=== PATIENT | male | born 1955 | race Caucasian/White ===

== ENCOUNTER 2019-09-11 14:24 | Emergency (ER) | payer OTHER ==
[2019-09-11] MEDS ORDERED: SODIUM CHLORIDE 0.9% (FLUSH) 10 ML SYG IV PRN (14:36)
[2019-09-11] MEDS ORDERED: SODIUM CHLORIDE 0.9% 1000ML 1,000 ML IVS ONE (14:37)
[2019-09-11] MEDS ORDERED: ONDANSETRON INJ 4 MG/2 ML VIAL ONE (14:41)
[2019-09-11] MEDS ORDERED: fentaNYL CITRATE INJ 50 MCG/ML AMP ONE (14:42)
[2019-09-11] MEDS ORDERED: KETOROLAC TROMETHAMINE INJ 30 MG/ML VIAL ONE (14:42)
[2019-09-11] MEDS ORDERED: KETOROLAC TROMETHAMINE INJ 30 MG/ML VIAL IV ONE (14:45)
[2019-09-11] MEDS ORDERED: ONDANSETRON INJ 4 MG/2 ML VIAL IV ONE (14:45)
[2019-09-11] MEDS ORDERED: fentaNYL CITRATE INJ 50 MCG/ML AMP IV ONE (14:45)
--- NOTE | 2019-09-11 14:48 | ED.PDOC ---
History of Present Illness - General Time Seen by Provider: 09/11/19 14:36 Source: patient - History of Present Illness Initial Comments: 64 yo male who presents with cc of abdominal pain. Sudden onset approx 30 mins ago at work, located to RLQ with radiation to right groin, testicle, and penis, constant, dull, 10/10, no change with position changes, nothing tried for relief. Reports only small amount of urination since onset but no dysuria or hematuria. Reports nausea but no vomiting. Denies fevers, chills, diarrhea. No hx of similar sx's or kidney stones. Allergies/Adverse Reactions: Allergies NO KNOWN ALLERGY Allergy (Unverified 09/11/19 15:06) Home Medications: Ambulatory Orders ALPRAZolam [Xanax] 0.5 mg PO BID PRN #14 tab 11/04/14 Cetirizine HCl [Zyrtec] 10 mg PO BID 11/04/14 predniSONE 10 mg BID 11/04/14 Acetaminophen W/ Codeine [Tylenol W/ CODEINE #3] 1 ea PO Q6H PRN 5 Days #15 09/11/19 Ciprofloxacin [Cipro] 500 mg PO BID 7 Days #14 tab 09/11/19 Ondansetron Odt [Zofran ODT] 8 mg PO Q8H PRN 5 Days #10 tab 09/11/19 Tamsulosin HCl [Flomax] 0.4 mg PO DAILY 7 Days #7 cap 09/11/19 Review of Systems - Review of Systems Review of Systems: 09/11/19 14:48 as per HPI All other Systems: Reviewed and Negative Past Medical History (General) - Patient Medical History Hx Asthma: No - Vaccination History Hx Influenza Vaccination: No - Social History Hx Tobacco Use: No Hx Alcohol Use: No - Female History Patient : No Family Medical History - Family History Mother Family History: Unknown Physical Exam - Physical Exam General Appearance: Alert, Anxious - due to pain Eye Exam: bilateral normal Ears, Nose, Throat: hearing grossly normal, normal ENT inspection Neck: non-tender, full range of motion, supple, normal inspection Respiratory: lungs clear, normal breath sounds, no respiratory distress, no accessory muscle use Cardiovascular/Chest: normal peripheral pulses, regular rate, rhythm, no edema, no murmur Peripheral Pulses: radial,right: 2+, radial,left: 2+ Gastrointestinal/Abdominal: non tender, soft, no organomegaly, other - testicles and penis appear normal without swelling/redness, no tenderness, no hernias appreciated Back Exam: normal inspection, no CVA tenderness, no vertebral tenderness Extremity: normal range of motion, non-tender, normal inspection, no pedal indio ma, no calf tenderness Neurologic: ground hand II-XII nml as tested, no motor/sensory deficits, alert, normal mood/affect, oriented x 3 Skin Exam: normal color, warm/dry Progress - Progress Progress: 09/11/19 14:50 Acute abdominal pain -suspect kidney stone most likely. Consider also acute appendicitis vs colitis vs muscle strain vs hernia vs other -stat labs, UA -place PIV, 1 L NS bolus, Fentanyl 50 mcg IV, Toradol 30 mg IV, Zofran 8 mg IV 09/11/19 17:11 -Labs reveal large blood on UA. WBC is elevated to 11,000. BUN/Cr wnl. -CT A/P obtained and reveals obstructing distal 4 mm stone at right distal UVJ with mild associated hydroureteronephrosis. Also noted is possible mild div erticulitis in the sigmoid colon. Incidentally noted Right 1.5 cm exophytic cyst as well. -discussed dx of ureteral stone and acute diverticulitis as well as treatment plan and expected course. Suspect great chance of passage given location and size. Will trx with Rocephin 1 g IV, Cipro 500 PO, Flomax here. Send home with Cipro 500 BID x7 days, Zofran PRN, Tylenol #3 PRN, Zofran PRN as well as work note. Return warnings discussed. F/u with PCP 1-2 weeks for repeat eval and to discuss right renal cyst. Jeff Flores MD Billing #[id number] - Results/Orders Results/Orders: 09/11/19 14:36 IV Care:Saline Lock per Protoc QSHIFT Sodium Chloride 0.9% (Flush) [Saline Flush Syringe] 10 ml IV PRN PRN Laboratory Results - last 24 hr 09/11/19 09/11/19 09/11/19 14:40 14:40 14:40 WBC 11.0 H RBC 5.32 Hgb 15.9 Hct 47.3 MCV 88.9 MCH 29.8 MCHC 33.6 RDW 13.7 Plt Count 243 MPV 9.4 Absolute Neuts (auto) 7.00 H Absolute Lymphs (auto) 2.80 Absolute Monos (auto) 0.80 Absolute Eos (auto) 0.30 Absolute Basos (auto) 0.10 Neutrophils % 63.5 Lymphocytes % 25.7 Monocytes % 7.2 Eosinophils % 2.6 Basophils % 1.0 Sodium 141 Potassium 3.5 L Chloride 104 Carbon Dioxide 25 Anion Gap 15.5 BUN 18 Creatinine 0.88 BUN/Creatinine Ratio 20.5 H Random Glucose 98 Serum Osmolality 283.1 Calcium 9.5 Total Bilirubin 0.7 Direct Bilirubin 0.2 Indirect Bilirubin 0.5 AST 23 ALT 14 Alkaline Phosphatase 77 Serum Total Protein 7.5 Albumin 4.3 Lipase 32 Urine Color Urine Appearance Urine pH Ur Specific Becker Urine Protein Urine Glucose (UA) Urine Ketones Urine Blood Urine Nitrite Urine Bilirubin Urine Urobilinogen Ur Leukocyte Esterase Urine RBC Urine WBC Ur Epithelial Cells Urine Bacteria Urine Mucus 09/11/19 15:00 WBC RBC Hgb Hct MCV MCH MCHC RDW Plt Count MPV Absolute Neuts (auto) Absolute Lymphs (auto) Absolute Monos (auto) Absolute Eos (auto) Absolute Basos (auto) Neutrophils % Lymphocytes % Monocytes % Eosinophils % Basophils % Sodium Potassium Chloride Carbon Dioxide Anion Gap BUN Creatinine BUN/Creatinine Ratio Random Glucose Serum Osmolality Calcium Total Bilirubin Direct Bilirubin Indirect Bilirubin AST ALT Alkaline Phosphatase Serum Total Protein Albumin Lipase Urine Color Yellow Urine Appearance Sl cloudy Urine pH 6.0 Ur Specific Becker 1.025 Urine Protein Trace Urine Glucose (UA) Negative Urine Ketones Negative Urine Blood Large H Urine Nitrite Negative Urine Bilirubin Negative Urine Urobilinogen 1.0 Ur Leukocyte Esterase Negative Urine RBC >50 H Urine WBC 1-3 Ur Epithelial Cells 0-1 Urine Bacteria Rare Urine Mucus Small Departure - Departure Clinical Impression: Ureteral stone with hydronephrosis, Diverticulitis, Renal cyst Time of Disposition: 17:15 Disposition: Discharge to Home or Self Care Condition: Fair Instructions: Kidney Stones (DC) Diet: resume usual diet Referrals: Brian Hobbs MD [Family Provider] - 1-2 Weeks Prescriptions: Acetaminophen W/ Codeine [Tylenol W/ CODEINE #3] 1 ea PO Q6H PRN 5 Days #15 PRN Reason: Pain Ciprofloxacin [Cipro] 500 mg PO BID 7 Days #14 tab Ondansetron Odt [Zofran ODT] 8 mg PO Q8H PRN 5 Days #10 tab PRN Reason: Nausea Tamsulosin HCl [Flomax] 0.4 mg PO DAILY 7 Days #7 cap Home Medications: Ambulatory Orders ALPRAZolam [Xanax] 0.5 mg PO BID PRN #14 tab 11/04/14 Cetirizine HCl [Zyrtec] 10 mg PO BID 11/04/14 predniSONE 10 mg BID 11/04/14 Acetaminophen W/ Codeine [Tylenol W/ CODEINE #3] 1 ea PO Q6H PRN 5 Days #15 09/11/19 Ciprofloxacin [Cipro] 500 mg PO BID 7 Days #14 tab 09/11/19 Ondansetron Odt [Zofran ODT] 8 mg PO Q8H PRN 5 Days #10 tab 09/11/19 Tamsulosin HCl [Flomax] 0.4 mg PO DAILY 7 Days #7 cap 09/11/19 Additional Instructions: Remain well hydrated and advance diet and activity level as tolerated. Take ibuprofen 600 mg every 6 hours as needed and Tylenol as needed for pain. You may take Tylenol #3 as directed for breakthrough pain. Do not drive or operate heavy machinery when taking. Return if symptoms return or worsen. Follow up with your primary care doctor in 1-2 weeks for repeat evaluation and to further discuss the right kidney cyst which was noted on your cat scan this visit.
--- NOTE | 2019-09-11 16:24 | CT ---
EXAM DESCRIPTION: Abdoment/Pelvis w/o Contrast CLINICAL HISTORY: 64 years Male, RLQ pain, hematuria COMPARISON: None available. TECHNIQUE: Contiguous 3 mm axial images were obtained from the lung bases to the level of the proximal femora without the administration of intravenous or oral contrast. Sagittal and coronal reconstructions were reviewed. FINDINGS: Limited evaluation of the solid organs due to the lack of intravenous contrast. THORAX: Mild atelectasis of the right lung base. LIVER: The liver demonstrates normal size and density with no intrahepatic biliary ductal dilatation. GALLBLADDER: Grossly unremarkable. PANCREAS: Appears normal with no cystic or solid lesions. SPLEEN: Normal ADRENAL GLANDS: Normal with no nodules or masses. KIDNEYS: 1.5 cm exophytic isodense lesion is noted in the upper pole of the right kidney. Mild hydroureteronephrosis of the right kidney secondary to obstruction from a 4 mm calculus at the ureterovesical junction. The visualized ureters appear grossly unremarkable. STOMACH: Small hiatal hernia. The stomach is moderately distended with no gross abnormality. SMALL BOWEL: The small bowel loops demonstrate variable degrees of distention with no abnormal dilatation or other signs to suggest bowel obstruction. LARGE BOWEL: Constipation. Numerous diverticula are noted throughout the visualized colon. Mild inflammatory stranding surrounding the proximal sigmoid colon could represent early changes of acute diverticulitis. The appendix is well-visualized and appears normal No evidence of free intraperitoneal air or fluid. RETROPERITONEUM: The abdominal aorta is nonaneurysmal with mild atherosclerosis. The inferior vena cava is normal in size and caliber. Few subcentimeter retroperitoneal lymph nodes are identified. URINARY BLADDER: Not well distended limiting evaluation. The prostate gland demonstrates few calcifications. ADDITIONAL FINDINGS: Small fat-containing bilateral inguinal hernias. BONES: Mild degenerative changes are identified in the visualized bones.No evidence of osteophytic or osteoblastic lesions. IMPRESSION: 1. Mild hydroureteronephrosis of the right kidney secondary to obstruction from a 4 mm calculus at the ureterovesical junction. 2. 1.5 cm exophytic isodense lesion is noted in the upper pole of the right kidney with a density of 17 Hounsfield units. This could represent a complicated cyst. 3. Possible mild acute diverticulitis of the proximal sigmoid colon. No perforation or abscess formation. This exam was performed according to our departmental dose-optimization program, which includes automated exposure control, adjustment of the mA and/or kV according to patient size and/or use of iterative reconstruction technique. Electronically signed by: Jocelyn Aguilar MD 09/11/2019 4:22 PM [employer]
[2019-09-11] MEDS ORDERED: TAMSULOSIN 0.4 MG CAP PO ONE (16:33)
[2019-09-11] MEDS ORDERED: CIPROFLOXACIN 500 MG TAB PO ONE (16:33)
[2019-09-11] MEDS ORDERED: cefTRIAXone SODIUM 1 GM in SODIUM CHL 0.9% 50ML MIN-BAG+ 50 ML IVPB ONE (16:33)
[2019-09-11] MEDS ORDERED: cefTRIAXone SODIUM 1 GM VIAL ONE (16:42)
[2019-09-11] MEDS ORDERED: SODIUM CHL 0.9% 50ML MIN-BAG+ 50 ML IVPB ONE (16:43)
[2019-09-11 17:40] VITALS: BP 142/80; TEMP 98.1; O2SAT 97
== END 2019-09-11 17:38 | disposition home or self-care (01) ==
LOC: ER 14:24
DX: N13.2 Hydronephrosis with renal and ureteral calculous obstruction (principal); K57.32 Diverticulitis of large intestine without perforation or abscess without bleeding; N28.1 Cyst of kidney, acquired
CPT/HCPCS: 36415; 74176; 80048; 80076; 81001; 83690; 85025; J0696; J1885; J2405; J3010; J7030; J7050

== ENCOUNTER 2019-09-12 12:10 | Observation (INO) | payer OTHER ==
[2019-09-12] MEDS ORDERED: HYDROmorphone HCL INJ 2 MG/ML VIAL ONE (12:46)
[2019-09-12] MEDS ORDERED: HYDROmorphone HCL INJ 2 MG/ML VIAL IV ONE ×2 (12:53→14:04)
[2019-09-12] MEDS ORDERED: SODIUM CHLORIDE 0.9% 1000ML 1,000 ML IVS ONE ×2 (12:59→15:36)
--- NOTE | 2019-09-12 13:04 | ED.PDOC ---
History of Present Illness - General Chief Complaint: Problem Time Seen by Provider: 09/12/19 12:45 Source: patient Exam Limitations: no limitations - History of Present Illness Initial Comments: DX'D HERE LAST NOC WITH R 4MM KIDNEY STONE AND POSSIBLE DIVERTICULITIS FOR WHICH HE WAS APPROPRIATELY RX'D CIPRO. R FLANK PAIN NOT BETTER TODAY AND TYL#3 NOT HELPING, THUS RETURNED TO ER. CANNOT FIND A COMFORTABLE POSITION. Timing/Duration: yesterday, getting worse Quality: severe, sharpness Onset Location: right flank Radiation: none Activites at Onset: none Prior abdominal problems: none Improving Factors: nothing Worsening Factors: nothing Associated Symptoms: nausea/vomiting Allergies/Adverse Reactions: Allergies NO KNOWN ALLERGY Allergy (Unverified 09/11/19 15:06) Home Medications: Ambulatory Orders ALPRAZolam [Xanax] 0.5 mg PO BID PRN #14 tab 11/04/14 Cetirizine HCl [Zyrtec] 10 mg PO BID 11/04/14 predniSONE 10 mg BID 11/04/14 Acetaminophen W/ Codeine [Tylenol W/ CODEINE #3] 1 ea PO Q6H PRN 5 Days #15 09/11/19 Ciprofloxacin [Cipro] 500 mg PO BID 7 Days #14 tab 09/11/19 Ondansetron Odt [Zofran ODT] 8 mg PO Q8H PRN 5 Days #10 tab 09/11/19 Tamsulosin HCl [Flomax] 0.4 mg PO DAILY 7 Days #7 cap 09/11/19 Review of Systems - Review of Systems Constitutional: Denies: chills, fever EENTM: States: no symptoms reported Respiratory: States: no symptoms reported Cardiology: States: no symptoms reported Gastrointestinal/Abdominal: States: nausea - NONE AT PRESENT. EARLIER PAIN TRIGGERED N/V.. Denies: abdominal pain Genitourinary: Denies: dysuria, frequency, pain Musculoskeletal: Denies: joint pain, neck pain Skin: States: no symptoms reported Neurological: States: no symptoms reported Endocrine: States: no symptoms reported Hematologic/Lymphatic: States: no symptoms reported All other Systems: Reviewed and Negative Past Medical History (General) - Patient Medical History Hx Asthma: No Surgical History: appendectomy - Vaccination History Hx Influenza Vaccination: No Hx Pneumococcal Vaccination: Yes - Social History Hx Tobacco Use: No Hx Alcohol Use: No Hx Substance Use: No Hx Substance Use Treatment: No Hx Depression: No - Female History Patient : No Family Medical History - Family History Mother Family History: Unknown Physical Exam - Physical Exam General Appearance: Alert, Other - UNCOMFORTABLE Eyes, Ears, Nose, Throat Exam: PERRL/EOMI, normal ENT inspection Neck: non-tender, full range of motion Cardiovascular/Respiratory: regular rate, rhythm, no M/R/G Gastrointestinal/Abdominal: normal bowel sounds, non tender, soft, no organomegaly, no pulsatile mass Back Exam: normal inspection, CVA tenderness (R) Extremity: normal range of motion, normal inspection Neurologic: alert, normal mood/affect, oriented x 3 Skin Exam: normal color, warm/dry Lymphatic: no adenopathy Progress - Results/Orders Results/Orders: CT 4MM STONE AT RIGHT UVJ WITH HYDROURETER. STONE <6MM BUT UNMOVED FROM YESTERDAY. UA NEG (NO BLOOD). CMP UNREMARKABLE. CBC WBC NL BUT ELEV NEUTROPHILS. I TALKED WITH [facility], ANNETTE MARK, FOR ADMISSION FOR PAIN CONTROL, FLOMAX, FLUIDS TO SEE IF THE SMALL STONE WILL PASS. HE FEELS PT NEEDS FURTHER UROLOGIC CARE SUCH STENTING. THUS I AM GOING TO CONTACT [facility] UROLOGY ROASTER HELPER. THE STONE THOUGH SMALL IS NOT PASSING BEYOND UVJ AND PAIN NOT CONTROLLED VIA OUTPT PO. WE CALLED UROLOGY TO SEE IF THEY CAN SEE HIM IN CLINIC TODAY FOR POSSIBLE URETEROSCOPY AND MANUAL STONE REMOVAL. THEY SAID TO JUST SEND HIM TO THE ER. WE ARE NOW CALLING THE [facility] TRANSFER LINE TO TRY AND TALK WITH UROLOGY ROASTER HELPER. I SPOKE WITH DR. BOYER, UROLOGY. HE STATED [facility] GUIDELINES STATE FLUIDS AND PAIN CONTROL 2-4 WKS TO SEE IF STONE WILL PASS ( LONG PT NOT SEPTIC, WHICH HE IS NOT). I CALLED ANNETTE MARK AGAIN AND EXPLAINED TO HIM ALL OF THE ABOVE. HE IS NOW WILLING TO ADMIT THE PT FOR IVF AND PAIN CONTROL TO SEE IF WILL PASS THE STONE. PROLONGED ER STAY DUE TO DIFFICULTY IN ARRANGING FURTHER PATIENT CARE. Departure - Departure Clinical Impression: Nephrolithiasis, Hydroureter on right, Acute flank pain Disposition: Admit Patient Condition: Good Departure Forms: ED Discharge - Pt. Copy, Patient Portal Self Enrollment Referrals: FRANKLIN SALAZAR MD [Primary Care Provider] - 1-2 Weeks Home Medications: Ambulatory Orders ALPRAZolam [Xanax] 0.5 mg PO BID PRN #14 tab 11/04/14 Cetirizine HCl [Zyrtec] 10 mg PO BID 11/04/14 predniSONE 10 mg BID 11/04/14 Acetaminophen W/ Codeine [Tylenol W/ CODEINE #3] 1 ea PO Q6H PRN 5 Days #15 09/11/19 Ciprofloxacin [Cipro] 500 mg PO BID 7 Days #14 tab 09/11/19 Ondansetron Odt [Zofran ODT] 8 mg PO Q8H PRN 5 Days #10 tab 09/11/19 Tamsulosin HCl [Flomax] 0.4 mg PO DAILY 7 Days #7 cap 09/11/19 Decision To Admit - Decistion To Admit Decision to Admit Reason: Admit from ER Decision to Admit Date: 09/12/19 Decision to Admit Time: 15:40
--- NOTE | 2019-09-12 13:32 | CT ---
Study: CT abdomen and pelvis. Indication: KNOWN NEPHROLITHIASIS; PAIN NOT IMPROVING. Technique: CT of the abdomen and pelvis obtained without intravenous contrast. This exam was performed according to our departmental dose-optimization program, which includes automated exposure control, adjustment of the mA and/or kV according to patient size and/or use of iterative reconstruction technique. Comparison: September 11, 2019. Findings: Linear scar versus atelectasis in the lung bases. Heart is normal. Corner artery and abdominal aortic atherosclerosis. Hepatic flexure lies anterior to the liver. Several tiny subcentimeter low-density foci of the liver too small to characterize on this noncontrast exam. Gallbladder, pancreas, spleen, adrenal glands, left kidney, bladder, prostate gland demonstrate stable appearance. Persistent 4 mm obstructing stone at the right UVJ with associated mild to moderate right hydroureteronephrosis. Stable slightly hyperdense exophytic lesion of the superior pole right kidney. Colonic diverticulosis. Stomach, small bowel, and appendix unremarkable. Atherosclerosis aorta. Degenerative changes of the spine noted. Impression: Persistent 4 mm obstructing stone at the right UVJ with [id number] right hydronephrosis. Stable tiny indeterminate complex lesion superior pole right kidney. Renal sonogram could better evaluate. Additional stable findings as above. Electronically signed by: Arpan Rowland MD 09/12/2019 1:31 PM [employer]
[2019-09-12] MEDS ORDERED: PROMETHAZINE HCL INJ 25 MG in SODIUM CHLORIDE 0.9% 50ML 50 ML IVPB ONE (13:45)
[2019-09-12] MEDS ORDERED: PROMETHAZINE HCL INJ 25 MG/ML VIAL ONE (13:52)
[2019-09-12] MEDS ORDERED: SODIUM CHLORIDE 0.9% 50ML 50 ML ONE (13:53)
[2019-09-12] MEDS ORDERED: KETOROLAC TROMETHAMINE INJ 30 MG/ML VIAL IV ONE (14:03)
[2019-09-12] MEDS ORDERED: TAMSULOSIN 0.4 MG CAP PO ONE (15:36)
--- NOTE | 2019-09-12 16:05 | HP ---
SUPERVISING PHYSICIAN: Ha Andrew M.D. CHIEF COMPLAINT: Right flank pain. HISTORY OF PRESENT ILLNESS: This is a 64 year-old male patient who came to the Emergency Room yesterday with right flank pain. He was seen in the Emergency Room and found to have a ureteral kidney stone. He was sent home with pain medication, however failed to improve and states that not only does he still have the pain but nausea and vomiting as well. He returned to the Emergency Room for this reason. He was seen in the Emergency Room. A repeat CAT scan revealed a 4 mm ureteral stone which was described as being an obstructing stone in the right ureterovesical junction with mild to moderate hydronephrosis. His labs showed a normal white count but he does have a left shift of 82.3. Chemistry shows a preserved renal function. Potassium at 3.5, bilirubin is up a little bit at 1.1. Urinalysis shows no significant sign of urinary tract infection. The Emergency Room physician spoke with Dr. Duval in [place] and Dr. Duval informed him that with that size of stone and lack of sepsis that the best course of action would be fluids, Flomax and pain control to try to get him to pass it. Therefore he has been referred for observation for those things. At time of examination, the patient is comfortable after pain medication. No nausea or vomiting currently at this time. PAST MEDICAL HISTORY: Negative. PAST SURGICAL HISTORY: 1. Left thumb surgery in the distant past. CURRENT MEDICATIONS: 1. Other than the Tylenol #3 that he was taking at home for pain control, he is not on any current medications. ALLERGIES: NO KNOWN DRUG ALLERGIES. FAMILY HISTORY: Reviewed and noncontributory. SOCIAL HISTORY: The patient has a 30 pack year smoking history but quit 12 years ago. Rare alcohol. He does not utilize any illegal drugs. REVIEW OF SYSTEMS: CONSTITUTIONAL: No fever or chills. No recent weight loss or weight gain. HEENT: No headaches, vision changes, ear pain, nasal congestion or throat pain. RESPIRATORY: No cough, hemoptysis or pleuritic chest pain. CARDIOVASCULAR: No chest pain, palpitations or peripheral edema. GASTROINTESTINAL: Positive for nausea and vomiting. No diarrhea. No constipation and no abdominal pain. GENITOURINARY: No dysuria or frequency, but he does have right sided flank pain. ENDOCRINE: No polydipsia, polyuria or polyphagia. No heat or cold intolerance. HEMATOLOGIC: No easy bruising or transfusions reaction. SKIN: No rashes, lesions or wounds. MUSCULOSKELETAL: No joint pain, joint swelling or muscle cramps. PHYSICAL EXAMINATION: VITAL SIGNS: Blood pressure 170/88, heart rate 92, respiratory rate 20, temperature 97.8, oxygen saturation 96%. GENERAL: Mr. Guillaume is a 64 year-old male patient in no active distress currently. NEUROLOGIC: The patient is alert and oriented. LUNGS: Clear to auscultation bilaterally. CARDIOVASCULAR: Regular rate and rhythm. Normal S1, S2. ABDOMEN: Soft. Positive bowel sounds. Does have some tenderness to palpation in the right flank area. BACK: Positive for CVA tenderness. EXTREMITIES: Lower extremities with no edema. LABORATORY: Labs and films are as discussed in history of present illness. ASSESSMENT: 1. Right ureteral obstructing stone in the right ureterovesical junction with mild to moderate hydronephrosis. 2. Intractable nausea and vomiting. 3. Dehydration secondary to #2. PLAN: Given his inability to control pain at home, I do find it prudent to admit him for pain control, fluids as well as Flomax to attempt to help him pass the stone. Will monitor for signs of infection, although urinalysis is currently normal. Will strain his urine as well. #[id number] [facility]
[2019-09-12] MEDS ORDERED: SODIUM CHLORIDE 0.9% (FLUSH) 10 ML SYG IV PRN (16:20)
[2019-09-12] MEDS ORDERED: IV SET AND CAP CHANGE INJ INJ SCH (16:30)
--- NOTE | 2019-09-12 16:56 | PCM.H&P ---
History of Present Illnes - History of Present Illness Reason for Visit: Right flank pain - Past Surgical History Past Surgical History: Other - Left thumb surgery - Past Family History Family History: None - Past Social History Smoke: # pack years - 30, Quit - 12 years ago Alcohol: Rare Drugs: None Lives: With Family Review of Systems - Review of Systems Constitutional: States: Weakness. Denies: Fever, Chills Eyes: Denies: Pain, Vision Change ENT: Denies: Ear Pain, Throat Pain Respiratory: Denies: Cough, Shortness of Breath, Wheezing Cardiovascular: Denies: Chest Pain, Palpitations, Edema Gastrointestinal: States: Nausea, Vomiting. Denies: Abdominal Pain, Diarrhea, Constipation Genitourinary: States: Other - right flank pain. Denies: Dysuria, Frequency Musculoskeletal: Denies: Neck Pain Skin: Denies: Rash, Lesions Neurological: Denies: Weakness, Numbness, Confusion - Medications/Allergies Allergies/Adverse Reactions: Allergies Allergy/AdvReac Type Severity Reaction Status Date / Time NO KNOWN ALLERGY Allergy Unverified 09/11/19 15:06 Medications: Current Medications Fentanyl Citrate (Sublimaze Inj) 50 mcg IV Q2H PRN PRN Reason: PAIN -- MODERATE TO SEVERE Stop: 10/12/19 16:21 Lactated Ringer's (Lr) 1,000 mls @ 125 mls/hr IVS .QD PRN PRN Reason: IV THERAPY Stop: 10/12/19 16:19 Ketorolac Tromethamine (Toradol Inj) 30 mg IV Q6H PRN PRN Reason: PAIN -- MILD TO MODERATE Stop: 10/12/19 16:29 Sodium Chloride (Saline Flush Syringe) 3 ml IV PRN PRN PRN Reason: IV THERAPY Stop: 10/12/19 16:19 Tamsulosin HCl (Flomax) 0.4 mg PO DAILY NHI Stop: 10/13/19 08:59 Exam - Exam Vital Signs: Vital Signs (72 hours) 09/12/19 09/12/19 12:10 12:20 Temperature 97.8 F Pulse Rate [ 72 right brahcial] Respiratory 20 24 Rate Blood Pressure 170/88 [right brachial ] O2 Sat by Pulse 96 Oximetry General: Oriented x3, Cooperative, No acute distress HEENT: PERRLA, Mucous membr. moist/pink Lungs: Clear to auscultation Cardiovascular: Regular rate, Normal S1, Normal S2 Abdomen: Normal bowel sounds, Soft Extremities: No clubbing, No edema Skin: No rashes Psych/Mental Status: Mental status NL Past Medical History - Past Medical History General Medical History: no medical history
[2019-09-12] MEDS: KETOROLAC TROMETHAMINE INJ 30 MG/ML VIAL IV PRN (17:34)
[2019-09-12] MEDS: LACTATED RINGERS 1,000 ML IVS PRN (17:34)
[2019-09-12] MEDS: fentaNYL CITRATE INJ 50 MCG/ML AMP IV PRN (19:40)
[2019-09-13] MEDS: fentaNYL CITRATE INJ 50 MCG/ML AMP IV PRN ×2 (00:23→02:25)
[2019-09-13] MEDS: LACTATED RINGERS 1,000 ML IVS PRN (00:27)
[2019-09-13 06:34] VITALS: BP 147/78; TEMP 98; O2SAT 96
[2019-09-13] MEDS: KETOROLAC TROMETHAMINE INJ 30 MG/ML VIAL IV PRN (08:58)
[2019-09-13] MEDS ORDERED: TAMSULOSIN 0.4 MG CAP PO SCH (09:00)
--- NOTE | 2019-09-13 10:50 | DS ---
SUPERVISING PHYSICIAN: Ha Andrew MD DISCHARGE DIAGNOSIS: 1. Right ureteral obstructing stone in the right ureterovesical junction with mild to moderate hydronephrosis. 2. Intractable nausea and vomiting. 3. Dehydration secondary to #2. HISTORY OF PRESENT ILLNESS: This is a 64-year-old male patient who came to the Emergency Room with right flank pain. He had been seen in the Emergency Room and found to have a ureteral kidney stone. He was sent home with pain medication, however failed to improve and stated that he had pain and nausea and vomiting as well. He returned to the Emergency Room for this reason. A repeat CAT scan revealed a 4 mm ureteral stone which was described as being an obstructing stone in the right ureterovesical junction with mild to moderate hydronephrosis. His labs showed a normal white count but he does have a left shift of 82.3. Chemistry showed a preserved renal function. Potassium at 3.5, bilirubin up at 1.1. Urinalysis showed no significant sign of urinary tract infection. The Emergency Room physician spoke with Dr. Duval in [place] and Dr. Duval informed him that due to the size of stone and lack of sepsis, the best course of action would be fluids, Flomax and pain control to try to get him to pass it. He has been referred for observation to the hospital. HOSPITAL COURSE: The patient was given fluids as well as started on Flomax and pain medications which included fentanyl as well as IV Toradol. Since admission, there has been no evidence of him passing the stone, but his last significant pain was at 2:30 this morning and he received a dose of fentanyl. I spoke with Dr. Ng, urologist in [place], to see what he recommended for the patient. He said the patient could be discharged, but encouraged to increase his fluids, to continue the Flomax as well as give him some pain medications and that he would see him in his office in [place] on Wednesday. At this point, the patient's lab has been stable and he will be discharged home in stable condition. LABORATORY: WBCs have remained stable at 10.8 and 9.2. Hemoglobin 12.9, hematocrit 39. He does have a mild left shift on his differential. Electrolytes today are within normal limits with the exception of calcium slightly low at 8.2. BUN 24, creatinine 11.9. Urinalysis is completely within normal limits. RADIOLOGY: Abdomen and pelvis CT showed a persistent 4 mm obstructing stone at the right ureterovesical junction with mild to moderate right hydronephrosis, stable tiny indeterminate complex lesion superior pole, right kidney. Renal sonogram could better evaluate. DISCHARGE PLAN: The patient will be discharged home in stable condition. He is to resume his previous medications and continue the Flomax as well as the Cipro. He also has a prescription from the Emergency Room for Tylenol #3 and I have given him an additional prescription for Toradol for 4 additional days. He has an appointment with Dr. Pawan Ng, urologist in [place], on 09/18/19 at 1:15 PM. He has a hospital followup appointment with his primary care physician, Dr. Ej Lim, on 09/19/19 at 10 AM. He has been given instructions to increase his fluids, to resume his previous diet and activity. If his pain persists, he is to call Dr. Ng's office and I have given him that information so they can see him on an emergent basis. He is to return to the hospital or call Dr. Ng's office or Dr. Lim's office for any problems or complications. DISCHARGE MEDICATIONS: 1. Cetirizine. 2. Xanax. 3. Cipro. 4. Acetaminophen with codeine #3. 5. Zofran. 6. Tamsulosin. 7. Ketoralac. #[id number] [facility]
== END 2019-09-13 10:45 | disposition home or self-care (01) ==
LOC: ER 12:10 → MS 15:58
PROVIDERS: ADMIT Nurse Practitioner; ATTEND Nurse Practitioner Acute Care
DX: N13.2 Hydronephrosis with renal and ureteral calculous obstruction (principal); E86.0 Dehydration; K57.30 Diverticulosis of large intestine without perforation or abscess without bleeding; I70.0 Atherosclerosis of aorta; Z87.891 Personal history of nicotine dependence; Z79.899 Other long term (current) drug therapy; Z90.49 Acquired absence of other specified parts of digestive tract
CPT/HCPCS: 96361; 96365; 96375; 96376 ×2; J3010 ×3; J1170 ×2; J1885 ×3; J2550; J7030; A4216; J7120 ×2; 80053 ×2; 36415 ×2; 81001; 85025 ×2; 74176; 99285; G0378

== ENCOUNTER → 2019-09-21 | Outpatient (CLI) | payer OTHER ==
--- NOTE | 2019-09-22 09:56 | US ---
EXAM DESCRIPTION: Renal: Ultrasound. CLINICAL HISTORY: 64 years Male ABNORMAL RADIOLOGIC FINDINGS ON DIAGNOSTIC IMAGING OF RIGHT KIDNEY COMPARISON: CT scan abdomen and pelvis without contrast 12 September 2019. TECHNIQUE: Transcutaneous scanning: Two-dimensional and Doppler modes. FINDINGS: Right kidney measures 11.5 x 6.3 x 5.6 cm; mid-renal cortical thickness 15 mm with normal cortical .echogenicity. No hydronephrosis No echogenic stones. A solid mass of cortical tissue is projecting from the upper pole of the left kidney and impressing on the medial capsule of the inferior right lobe. This tissue measures 1.4 x 1.7 x 1.3 cm and is vascular density may be slightly lower than the adjacent cortex. Otherwise contour of the kidney with no perinephric fluid. Normal vascularity. Proximal ureter not visualized.. Left kidney measures 12.6 x 5.5 x 5.4 cm; mid-renal cortical thickness 14.5 mm.. Increased cortical echogenicity, less than the liver. No hydronephrosis. No echogenic stones. Smooth contour of the kidney with no perinephric fluid. Normal vascularity.. Proximal ureter not visualized.. Urinary bladder not visualized. Abdominal aorta: not measured. IMPRESSION: 1. Solid renal cortical tissue or mass projecting from the lateral upper pole cortex, impressing on the medial capsule of the inferior right hepatic lobe. This tissue may be slightly hypoechoic compared to the cortex. Maximum dimension 1.7 cm, with vascularity. No fluid component. Due to risk for renal tumor, urologic consult is recommended. 2. Left kidney is unremarkable. Electronically signed by: Sharif Moralez MD 09/22/2019 9:54 AM [facility]
== END ==
LOC: US 07:52
PROVIDERS: ATTEND Family Medicine
DX: R93.421 Abnormal radiologic findings on diagnostic imaging of right kidney (principal)

== ENCOUNTER → 2019-10-11 | Outpatient (CLI) | payer OTHER ==
--- NOTE | 2019-10-12 09:33 | CT ---
EXAM DESCRIPTION: Abdomen w/Contrast: Computed Tomography. CLINICAL HISTORY: RENAL MASS. RIGHT. COMPARISON: CT scan of the abdomen and pelvis without contrast September 12. Ultrasound of the bilateral kidneys September 21. TECHNIQUE: Spiral-axial scans at 5 x 5 mm intervals abdomen through the upper pelvis, after nonionic IV contrast. No oral contrast. Coronal and sagittal 2.0 mm reconstructions. Delayed 5 mm scans, liver to the upper pelvis. No adverse reactions. Total Exam DLP: 1748.6 mGy-cm. This exam was performed according to our departmental CT dose-optimization program which includes automated exposure control, adjustment of the mA and/or kV according to patient size and/or use of iterative reconstruction technique; to reduce radiation dose to as low as reasonably achievable (ALARA). FINDINGS: Kidneys: Again noted is a pedunculated mass projecting from the lateral superior right renal cortex impressing on the abutting medial capsule of the inferior right liver. Mass measures approximately 1.6 x 1.4 cm in the axial plane and 1.5 cm parallel to the capsular margin. Noncontrast density of the mass is plus 25. Mass density in the portal venous phase is +70. Density in the 5 minute delay phase is +53. Density of the upper pole right renal cortex in the portal venous phase is +122 no calcification. No fatty stranding or perirenal fluid. Bilateral kidneys otherwise unremarkable with no radiodense stones or hydronephrosis. Proximal ureters are negative. Lung bases and pleura: Scarring more likely than atelectasis in the right lower lobe. No effusion. Coronary artery calcifications. Liver, Stomach, Spleen, Adrenal Glands: Minimally irregular margin mass in the right lobe near the gallbladder fossa with dimensions 1.7 x 1.6 cm. Density is +51 Hounsfield units, portal venous phase and essentially same density on 5 minute delayed images. Unusual orientation of the liver with the gallbladder fossa and scooby hepatis directed anteriorly and slightly toward the midline. In addition, peritoneal fatty space courses anterior to the gallbladder fossa and scooby hepatis and contains the hepatic flexure of the colon. Small sliding gastric hiatal hernia but no obstruction. Other solid organs are negative. Pancreas, Gallbladder, Ducts: Unremarkable, other than gallbladder gallbladder fossa oriented anterior as previously noted. Mesentery: Negative. Aorta: Moderate atherosclerotic calcification. 2.8 cm greatest diameter just above the celiac axis ostium. Small Bowel: Scattered fluid and gas with no distended segments or significant air-fluid levels. Terminal Ileum/Cecum: Normal caliber along with normal caliber of the appendix. No surrounding inflammatory reaction in the fat. Colon: Scattered gas and fecal matter. Diverticula noted in the descending colon and continuing into the sigmoid to the lowest scan visualized. No complications. Spine: Spondylosis L5-S1 with desiccated disc gas and posterior disc bulge. Abdominal Wall/Back Soft Tissues: Unremarkable. IMPRESSION: 1. 1.6 x 1.5 x 1.4 cm pedunculated partially enhancing solid mass projecting from the lateral aspect of the superior pole of the right kidney and impressing on the adjacent medial capsule of the right inferior liver. No calcifications. Renal cell carcinoma as well as other benign and malignant renal entities should be considered. 2. Partially circumscribed and partially ill-defined margin of the low-density partially enhancing mass in the lateral aspect of the right hepatic lobe above the level of the gallbladder fossa and scooby hepatis measuring 1.7 x 1.6 cm. Metastatic bilateral malignant lesion or benign primary lesion more likely than primary neoplasm. Consider hepatic ultrasound and tissue sampling. Please see Paragraph 1. 3. Diverticulosis without complications. L5-S1 spondylosis with posterior bulging disc. 4. 2.8 cm abdominal aortic aneurysm suspected. Recommend follow-up every 5 years. Reference: J Am Colby Radiol 2013;10:789-794. Electronically signed by: Sharif Moralez MD 10/12/2019 9:[address] [facility]
== END ==
LOC: CT 07:36
PROVIDERS: ATTEND Urology
DX: D41.00 Neoplasm of uncertain behavior of unspecified kidney (principal); K76.9 Liver disease, unspecified; K57.30 Diverticulosis of large intestine without perforation or abscess without bleeding; M47.897 Other spondylosis, lumbosacral region; I77.9 Disorder of arteries and arterioles, unspecified

== ENCOUNTER → 2020-03-14 | Outpatient (CLI) | payer OTHER ==
--- NOTE | 2020-03-14 09:34 | CT ---
EXAM DESCRIPTION: Abdomen/Pelvis w/Contrast CLINICAL HISTORY: 64 years Male, NEOPLASM OF KIDNEY COMPARISON: CT abdomen and pelvis dated 10/11/2019 TECHNIQUE: Contiguous 3 mm axial images were obtained from the lung bases to the level of the proximal femora after the administration of intravenous and oral contrast. Sagittal and coronal reconstructions were reviewed. FINDINGS: THORAX: The imaged lower thorax demonstrates no gross abnormality. LIVER: 1.8 cm low-density lesion is noted in hepatic segment 8. No intrahepatic biliary ductal dilatation. GALLBLADDER: Grossly unremarkable. PANCREAS: Appears normal with no cystic or solid lesions. SPLEEN: Normal ADRENAL GLANDS: Normal with no nodules or masses. KIDNEYS: Stable 1.6 cm enhancing lesion in the upper pole of the right kidney. No hydronephrosis or nephrolithiasis bilaterally. The visualized ureters appear grossly unremarkable. STOMACH: Small hiatal hernia is noted. The stomach is not well-distended limiting detailed evaluation. SMALL BOWEL: The small bowel loops demonstrate variable degrees of distention with no abnormal dilatation or other signs to suggest bowel obstruction. LARGE BOWEL: Multiple diverticula are noted throughout the visualized colon, with no acute inflammation. The appendix is well-visualized and appears normal No evidence of free intraperitoneal air or fluid. RETROPERITONEUM: The abdominal aorta is nonaneurysmal with moderate atherosclerosis. The inferior vena cava is normal in size and caliber. No abnormally enlarged retroperitoneal lymph nodes are identified. URINARY BLADDER: Not well distended limiting detailed evaluation. Prostate gland demonstrates few calcifications. Seminal vesicles appear normal. ADDITIONAL FINDINGS: Small fat-containing bilateral inguinal hernias. BONES: Mild degenerative changes are identified in the visualized bones.No evidence of osteophytic or osteoblastic lesions. IMPRESSION: 1. Stable 1.6 cm enhancing lesion in the upper pole of the right kidney. 2. Stable 1.8 cm indeterminate low-density lesion in hepatic segment 8. 3. Colonic diverticulosis. This exam was performed according to our departmental dose-optimization program, which includes automated exposure control, adjustment of the mA and/or kV according to patient size and/or use of iterative reconstruction technique. Electronically signed by: Jocelyn Aguilar MD 03/14/2020 9:33 AM CDT
== END ==
LOC: CT 07:30
PROVIDERS: ATTEND Urology
DX: Z01.812 Encounter for preprocedural laboratory examination (principal); D41.00 Neoplasm of uncertain behavior of unspecified kidney; K76.9 Liver disease, unspecified; K57.30 Diverticulosis of large intestine without perforation or abscess without bleeding

== ENCOUNTER → 2020-07-31 | Outpatient (CLI) | payer MEDICARE, OTHER ==
--- NOTE | 2020-07-31 14:00 | CT ---
EXAM DESCRIPTION: Abdomen w/Contrast CLINICAL HISTORY: NEOPLASM OF UNCERTAIN BEHAVIOR OF LIVER,GB,AND BILE DUCT COMPARISON: March 14, 2020 TECHNIQUE: Postcontrast CT images of the abdomen are obtained using standard imaging protocol. This exam was performed according to our departmental dose-optimization program, which includes automated exposure control, adjustment of the mA and/or kV according to patient size and/or use of iterative reconstruction technique . FINDINGS: The visualized lung bases show mild linear scarring or atelectasis in the right lower lobe. Mild elevation right hemidiaphragm. Small probable cyst in the dome of the left lobe liver. Ill-defined low-attenuation lesion in the mid right lobe of the liver, segment 8 measuring 2.1 cm is mildly increased size compared to 1.8 cm on previous exam. Small hypodense lesion in the more medial right lobe of the liver measuring 8 mm image 30 of series 2 is stable in retrospect. Spleen, pancreas, adrenal glands, and gallbladder are unremarkable. Abdominal vasculature shows mild atherosclerotic disease. No nephrolithiasis. Exophytic solid enhancing mass of the upper pole right kidney measures 17 mm stable from previous. Tiny 3 to 4 mm cortical cyst of the medial mid pole right kidney is stable. No hydronephrosis. No pathologically enlarged abdominal or retroperitoneal lymphadenopathy. Stomach poorly distended but unremarkable. Visualized small bowel and colon show no acute findings. Scattered diverticuli of the colon are seen. No free intraperitoneal air. The osseous structures show no aggressive bony lesions. Spondylitic changes of the spine are seen. IMPRESSION: Slight interval increased size of indeterminate low-attenuation lesion in segment 8 of the right lobe liver. Stable solid enhancing likely renal cell carcinoma of the upper pole right kidney compared to previous exam. Interval resolution of nonobstructing right nephrolithiasis seen on previous exam. Colon diverticulosis without CT evidence of diverticulitis. Electronically signed by: Kishor Warren MD 07/31/2020 1:58 PM [facility]
== END ==
LOC: CT 07:31
PROVIDERS: ATTEND Urology
DX: Z01.812 Encounter for preprocedural laboratory examination (principal); D37.6 Neoplasm of uncertain behavior of liver, gallbladder and bile ducts; D41.01 Neoplasm of uncertain behavior of right kidney; K57.30 Diverticulosis of large intestine without perforation or abscess without bleeding